=== PATIENT | female | born 1990 | race African-American/Black ===

== ENCOUNTER 2019-11-14 17:31 | Emergency (ER) | payer OTHER, SELFPAY ==
[2019-11-15 19:47] LABS: SARS-CoV-2 MS2 Positive; SARS-CoV-2 N Gene Negative; SARS-CoV-2 S Gene Negative; SARS-CoV-2 orf1ab Negative
== END 2019-11-14 19:05 | disposition home or self-care (01) ==
LOC: MADERS 17:31
DX: R19.7 Diarrhea, unspecified (principal); R51 Headache; Z20.828 Contact with and (suspected) exposure to other viral communicable diseases; F20.9 Schizophrenia, unspecified
CPT/HCPCS: 87635; 99284; U0003

== ENCOUNTER 2020-05-22 17:48 | Emergency (ER) | payer SELFPAY | END 2020-05-22 18:37 | disposition home or self-care (01) | LOC: MADERS 17:48 | DX: H93.A2 Pulsatile tinnitus, left ear (principal); Z79.899 Other long term (current) drug therapy | CPT/HCPCS: 99283 ==

== ENCOUNTER 2020-05-24 11:42 | Observation (INO) | payer SELFPAY ==
[2020-05-24] MEDS ORDERED: Acetaminophen 325 MG TAB PO PRN (12:12)
[2020-05-24] MEDS ORDERED: diphenhydrAMINE 25 MG CAP PO PRN (12:28)
[2020-05-24 12:30] VITALS: BMI 55.8
[2020-05-24] MEDS ORDERED: Acetaminophen 325 MG TAB PO SCH (14:15)
--- NOTE | 2020-05-24 19:58 | HP ---
HISTORY OF PRESENT ILLNESS: The patient is a 30-year-old female with a several month history of abnormal uterine bleeding, who was a direct admit from clinic for symptomatic anemia. The patient was found to have a hemoglobin of 5.9. She reports continuous menstrual bleeding since February of 2020. She denies any new infections or new symptoms. She does report exertional dyspnea and lightheadedness that has been ongoing as well. PAST MEDICAL HISTORY: Significant for; 1. Depression. 2. Bipolar disorder. 3. Asthma. 4. Paranoid schizophrenia. PAST SURGICAL HISTORY: None. FAMILY HISTORY: The patient reports family history of uterine fibroids in her mother. Otherwise, no known family history. SOCIAL HISTORY: Patient denies tobacco, alcohol, and drug use. REVIEW OF SYSTEMS: GENERAL: Patient denies any fevers, chills, night sweats. She does report fatigue. VISION: Patient denies vision changes. Denies eye pain. ENT: Patient denies nasal congestion, ear pain. CARDIOVASCULAR: Patient denies chest pain, palpitations. RESPIRATORY: Patient reports exertional dyspnea. ABDOMINAL: Patient reports left-sided abdominal pain. She denies any nausea, vomiting. PERFORMANCE TEST CONSULTANT: Patient reports heavy menstrual bleeding. MUSCULOSKELETAL: Patient denies muscle pain, joint pain. PSYCHIATRIC: Patient denies anxiety and depression symptoms. PHYSICAL EXAMINATION: VITALS: Temperature 98.4, pulse 107, respirations 18, oxygen 100% on room air, blood pressure 144/78. GENERAL: Patient is alert and oriented x3, in no apparent distress. HEENT: Normocephalic, atraumatic. Extraocular muscles intact. Conjunctival pallor noted. Moist mucous membranes. HEART: Regular rate and rhythm. No murmurs, rubs, or gallops. LUNGS: Clear to auscultation bilaterally. ABDOMEN: Soft. Mild tenderness to palpation in the left upper quadrants. No rebound or guarding. EXTREMITIES: Normal bulk and tone. No peripheral edema. NEUROLOGICAL: Cranial nerves 2-12 intact grossly. PSYCHIATRIC: Appropriate mood and affect. ASSESSMENT/PLAN: 1. Symptomatic anemia. We have plans to type and screen and transfuse 2 units of packed red blood cells, transfusion protocol in place. We will admit patient for observation and monitor for any signs of transfusion reaction. We will likely discharge the patient tomorrow as long as she remains stable and as long as post transfusion hemoglobin is greater than 7. 2. Menorrhagia. We will plan to initiate hormonal control of patient's blood pressure on an outpatient basis. 3. Schizophrenia. Continue patient's home medications. 4. Depression. We will continue patient's home medications. Job ID: [id number]
[2020-05-24] MEDS: Benztropine 1 MG TAB PO SCH (20:58)
[2020-05-24] MEDS: ILOPERIDONE 6 MG PO SCH (21:00)
[2020-05-24] MEDS ORDERED: Calcium Carbonate 500 MG ChewTAB PO PRN (21:08)
[2020-05-25 05:12] LABS: Platelet Count 310 thou/uL (130-400)
[2020-05-25] MEDS: ILOPERIDONE 6 MG PO SCH (08:15)
[2020-05-25] MEDS: Benztropine 1 MG TAB PO SCH (08:15)
[2020-05-25] MEDS ORDERED: Atomoxetine Hcl [Strattera] 60 MG Capsule PO SCH (09:00)
[2020-05-25] MEDS ORDERED: DULoxetine 30 MG CAP PO SCH (09:00)
[2020-05-25 13:38] VITALS: BP 130/58; TEMP 97
[2020-05-26] MEDS ORDERED: medroxyPROGESTERone Acetate 2.5 MG TAB PO SCH (09:00)
== END 2020-05-25 11:45 | disposition home or self-care (01) ==
LOC: MADMS 11:42
PROVIDERS: ADMIT Family Medicine; ATTEND Family Medicine
DX: D64.9 Anemia, unspecified (principal); N92.0 Excessive and frequent menstruation with regular cycle; F31.9 Bipolar disorder, unspecified; J45.909 Unspecified asthma, uncomplicated; F20.0 Paranoid schizophrenia; Z79.899 Other long term (current) drug therapy
CPT/HCPCS: 36415; 36430; 85014; 85018; 85049; 86850; 86900; 86901; G0378; P9016

== ENCOUNTER 2020-07-28 13:29 | Emergency (ER) | payer SELFPAY ==
[~2020-07-28 13:29] MED LIST: Sodium Chloride 0.9% 1,000 ML BAG ONE; Sodium Chloride 0.9% 100 ML BAG ONE
[2020-07-28] MEDS ORDERED: Iopamidol 370 76% 125 ML VIAL FS ONE (13:52)
[2020-07-28 15:03] LABS: ALT (SGPT) 36 U/L (8-55); AST (SGOT) 44 U/L (5-34); Alkaline Phosphatase 74 U/L (40-110); Anion Gap 20 mmol/L (10-20); BUN (Urea Nitrogen) 13 mg/dL (7.0-18.7); Bilirubin, Total 0.7 mg/dL (0.2-1.2); CK (CPK) 1222 U/L (29-168); Calc. Creatinine Clearance 0 mL/min (70-130); Calcium 8.6 mg/dL (7.8-10.44); Carbon Dioxide 23 mmol/L (22-29); Chloride 104 mmol/L (98-107); Globulin 3.6 g/dL (2.4-3.5); Glucose 183 mg/dL (70-105); Potassium 4.2 mmol/L (3.5-5.1); Protein, Total 7.6 g/dL (6.0-8.3); Sodium 143 mmol/L (136-145)
[2020-07-28 15:06] LABS: #Basophils 0.2 thou/uL (0.0-0.2); #Lymphocytes 1.5 thou/uL (1.20-3.40); #Monocytes 1.2 thou/uL (0.11-0.59); %Basophils 1.6 % (0.0-1.0); %Eosinophils 0.2 % (0.0-10.0); %Lymphocytes 12.8 % (21.0-51.0); %Monocytes 9.7 % (0.0-10.0); %Neutrophils 75.6 % (42.0-75.0); Anisocytosis MODERATE=16-30 cells (100X) (0-5/hpf); Hemoglobin 9.9 g/dL (12.0-16.0); Hypochromia MODERATE=16-30 cells (100X) (0-5/hpf); MDiff Complete? YES; Mean Corpuscular HGB CONC 27.7 g/dL (32.0-36.0); Mean Corpuscular Hemoglobin 20.1 pg (27.0-31.0); Mean Corpuscular Volume 72.7 fL (78.0-98.0); Mean Platelet Volume 7.4 fL (7.4-10.4); Microcytosis SLIGHT = 6-15 cells (100X) (0-5/hpf); Platelet Count 475 thou/uL (130-400); Platelet Morphology Comment Appears Increased; RBC Distribution Width 20.5 % (11.5-14.5); Red Blood Cell (RBC) Count 4.92 mill/uL (4.20-5.40); White Blood Cell (WBC) Count 11.9 thou/uL (4.8-10.8)
[2020-07-28] MEDS ORDERED: Sodium Chloride 0.9% 1,000 ML ONE (15:10)
[2020-07-28] MEDS ORDERED: Ibuprofen 400 MG TAB ONE (15:10)
[2020-07-28] MEDS ORDERED: Ondansetron PF 4 MG/2 ML Vial ONE (15:10)
[2020-07-28] MEDS ORDERED: cefTRIAXone\\ROCEPHIN 2 GM VIAL ONE (15:57)
[2020-07-28] MEDS ORDERED: Sodium Chloride 0.9% 100 ML ONE (15:57)
[2020-07-28] MEDS ORDERED: Sodium Chloride 0.9% 250 ML 250 ML ONE (15:57)
[2020-07-28] MEDS ORDERED: Azithromycin 500 MG VIAL ONE (15:57)
[2020-07-28 16:17] LABS: SARS-CoV-2 NAA Rapid Test DETECTED (NotDetected)
[2020-07-28] MEDS ORDERED: Dexamethasone 10 MG/ML VIAL ONE (17:14)
[2020-07-28] MEDS ORDERED: Enoxaparin Sodium 30 MG/0.3 ML SYRINGE ONE (17:14)
[2020-07-28] MEDS ORDERED: Ondansetron ODT 4 MG TAB SL PRN (19:45)
[2020-07-28] MEDS ORDERED: Sodium Chloride 0.9% 1,000 ML IV SCH (19:45)
[2020-07-28] MEDS ORDERED: Ondansetron PF 4 MG/2 ML Vial IVP PRN (19:45)
[2020-07-28] MEDS ORDERED: Acetaminophen 325 MG TAB PO PRN (19:45)
== END 2020-07-28 18:25 | disposition short-term general hospital (02) ==
LOC: MADERS 13:29
DX: U07.1 COVID-19 (principal); J12.82 Pneumonia due to coronavirus disease 2019; J44.1 Chronic obstructive pulmonary disease with (acute) exacerbation; R06.03 Acute respiratory distress; R09.02 Hypoxemia; R79.1 Abnormal coagulation profile; E87.2 Acidosis; Z79.899 Other long term (current) drug therapy
CPT/HCPCS: 0240U; 71046; 71275; 80053; 82550; 83605; 84484; 85025; 85379; 87040; 87149; 94760; 96365; 96372; 96375; J0456; J0696; J1100; J1650; J2405; J3490; J7050; Q9967

== ENCOUNTER 2020-08-06 10:43 | Emergency (ER) | payer SELFPAY ==
[2020-08-06] MEDS ORDERED: Acetaminophen 500 MG TAB ONE (11:57)
== END 2020-08-06 13:22 ==
LOC: MADERS 10:43
DX: S82.301A Unspecified fracture of lower end of right tibia, initial encounter for closed fracture (principal); Z79.899 Other long term (current) drug therapy; X50.1XXA Overexertion from prolonged static or awkward postures, initial encounter

== ENCOUNTER 2021-03-02 13:56 | Emergency (ER) | payer OTHER ==
[2021-03-02 15:17] LABS: #Basophils 0.1 thou/uL (0.0-0.2); #Eosinphils 0.1 thou/uL (0.0-0.7); #Lymphocytes 2.7 thou/uL (1.20-3.40); #Monocytes 0.5 thou/uL (0.11-0.59); #Neutrophils 6.2 thou/uL (1.40-6.50); %Eosinophils 0.6 % (0.0-10.0); %Lymphocytes 27.8 % (21.0-51.0); %Monocytes 5.4 % (0.0-10.0); %Neutrophils 65.1 % (42.0-75.0); Hemoglobin 9.6 g/dL (12.0-16.0); Mean Corpuscular HGB CONC 27.8 g/dL (32.0-36.0); Mean Corpuscular Hemoglobin 18.8 pg (27.0-31.0); Mean Corpuscular Volume 67.6 fL (78.0-98.0); Mean Platelet Volume 5.9 fL (7.4-10.4); Platelet Count 545 thou/uL (130-400); RBC Distribution Width 16.9 % (11.5-14.5); White Blood Cell (WBC) Count 9.5 thou/uL (4.8-10.8)
[2021-03-02 15:23] LABS: INR-International Normal Ratio 1.1; PTT 34.4 sec (22.9-36.1); Prothrombin Time 14.2 sec (12.0-14.7)
[2021-03-02 15:26] LABS: ALT (SGPT) 29 U/L (8-55); AST (SGOT) 20 U/L (5-34); Albumin 4.1 g/dL (3.5-5.0); Alkaline Phosphatase 89 U/L (40-110); Anion Gap 12 mmol/L (10-20); BUN (Urea Nitrogen) 8 mg/dL (7.0-18.7); Bilirubin, Total 0.4 mg/dL (0.2-1.2); CK (CPK) 169 U/L (29-168); Calc. Creatinine Clearance 0 mL/min (70-130); Calcium 8.9 mg/dL (7.8-10.44); Carbon Dioxide 27 mmol/L (22-29); Chloride 105 mmol/L (98-107); D-Dimer Test 0.28 *mcg/mL (0.27-0.43); Glucose 105 mg/dL (70-105); Potassium 4.4 mmol/L (3.5-5.1); Protein, Total 7.1 g/dL (6.0-8.3); Sodium 140 mmol/L (136-145)
[2021-03-02 15:37] LABS: Hypochromia SLIGHT = 6-15 cells (100X) (0-5/hpf); Microcytosis SLIGHT = 6-15 cells (100X) (0-5/hpf); Polychromasia MODERATE = 3-4 cells (100X) (0-2/hpf)
== END 2021-03-02 16:05 | disposition home or self-care (01) ==
LOC: MADERS 13:56
DX: D50.9 Iron deficiency anemia, unspecified (principal); R07.89 Other chest pain; D75.839 Thrombocytosis, unspecified; Z86.16 Personal history of COVID-19
CPT/HCPCS: 36415; 71045; 80053; 82550; 82553; 83880; 84484; 85025; 85379; 85610; 85730; 93005

== ENCOUNTER 2021-04-25 00:22 | Emergency (ER) | payer OTHER, SELFPAY ==
[2021-04-25] MEDS ORDERED: Sodium Chloride 0.9% 100 ML BAG FS ONE (00:23)
[2021-04-25] MEDS ORDERED: Iopamidol 370 76% 125 ML VIAL FS ONE (00:23)
[2021-04-25 01:38] LABS: Prothrombin Time 13.5 sec (12.0-14.7)
[2021-04-25 01:39] LABS: PTT 32.1 sec (22.9-36.1)
[2021-04-25 01:45] LABS: #Lymphocytes 2.6 thou/uL (1.20-3.40); #Monocytes 0.7 thou/uL (0.11-0.59); #Neutrophils 8.1 thou/uL (1.40-6.50); %Basophils 0.3 % (0.0-1.0); %Eosinophils 0.2 % (0.0-10.0); %Monocytes 6.4 % (0.0-10.0); %Neutrophils 70.2 % (42.0-75.0); Anisocytosis SLIGHT = 6-15 cells (100X) (0-5/hpf); Hypochromia SLIGHT = 6-15 cells (100X) (0-5/hpf); MDiff Complete? YES; Mean Corpuscular HGB CONC 28.4 g/dL (32.0-36.0); Mean Corpuscular Hemoglobin 19.5 pg (27.0-31.0); Mean Corpuscular Volume 68.6 fL (78.0-98.0); Mean Platelet Volume 5.8 fL (7.4-10.4); Microcytosis SLIGHT = 6-15 cells (100X) (0-5/hpf); Ovalocytes SLIGHT = 2-5 cells (100X) (0-1/hpf); Platelet Count 518 thou/uL (130-400); Platelet Morphology Comment Appears Adequate; RBC Distribution Width 17.2 % (11.5-14.5); Red Blood Cell (RBC) Count 5.13 mill/uL (4.20-5.40); Stomatocytes SLIGHT = 2-5 cells (100X) (0-1/hpf); White Blood Cell (WBC) Count 11.5 thou/uL (4.8-10.8)
[2021-04-25 01:47] LABS: ALT (SGPT) 23 U/L (8-55); AST (SGOT) 16 U/L (5-34); Alkaline Phosphatase 105 U/L (40-110); Anion Gap 10 mmol/L (10-20); BUN (Urea Nitrogen) 11 mg/dL (7.0-18.7); Bilirubin, Total 0.3 mg/dL (0.2-1.2); Calc. Creatinine Clearance 0 mL/min (70-130); Calcium 9.3 mg/dL (7.8-10.44); Carbon Dioxide 28 mmol/L (22-29); Chloride 108 mmol/L (98-107); Globulin 3.1 g/dL (2.4-3.5); Glucose 99 mg/dL (70-105); Potassium 4.1 mmol/L (3.5-5.1); Protein, Total 7.1 g/dL (6.0-8.3); Sodium 142 mmol/L (136-145)
[2021-04-25 02:05] LABS: SARS-CoV-2 NAA Rapid Test Not Detected (NotDetected)
[2021-04-25 02:06] LABS: BHCG - Serum Negative (NEGATIVE); Pregs Control Background? CLEAR/WHITE (CLR/WHITE); Pregs Control Bar Appear? YES (CONTROL BAR)
== END 2021-04-25 03:24 | disposition home or self-care (01) ==
LOC: MADERS 00:22
DX: B34.9 Viral infection, unspecified (principal); Z20.822 Contact with and (suspected) exposure to COVID-19; Z86.16 Personal history of COVID-19
CPT/HCPCS: 0240U; 36415; 71275; 80053; 83880; 84484; 84703; 85025; 85610; 85730; 93005; J3490; Q9967

== ENCOUNTER 2021-07-19 12:24 | Emergency (ER) | payer OTHER, SELFPAY ==
[2021-07-19 13:16] LABS: Bilirubin Negative (Negative); Blood, Urine Trace (Negative); Clarity Cloudy (Clear); Glucose, Urine (Dipstick) Negative (Negative); Ketone, Urine Negative (Negative); Leukocyte Small (Negative); Nitrite Negative (Negative); Protein, Urine (Dipstick) Negative (Neg-Trace); Urobilinogen 0.2 mg/dL (Less than 2); pH, Urine 7.5 (5.0-9.0)
[2021-07-19 13:19] LABS: Bacteria/HPF 1+ HPF (None Seen); RBC/HPF 0-3 HPF (0-3)
[2021-07-20 15:16] LABS: SARS-CoV-2 PCR by NAA Not Detected (NotDetected)
== END 2021-07-19 13:40 | disposition home or self-care (01) ==
LOC: MADERS 12:24
DX: J06.9 Acute upper respiratory infection, unspecified (principal); Z20.822 Contact with and (suspected) exposure to COVID-19
CPT/HCPCS: 81003; 81015; 99283; U0003; U0005

== ENCOUNTER 2021-11-09 14:38 | Emergency (ER) | payer OTHER | END 2021-11-09 16:00 | disposition home or self-care (01) | LOC: MADERS 14:38 | DX: U07.1 COVID-19 (principal); J45.901 Unspecified asthma with (acute) exacerbation; Z86.16 Personal history of COVID-19; Z79.899 Other long term (current) drug therapy | CPT/HCPCS: 71045; U0003; U0005 ==

== ENCOUNTER 2021-12-12 13:02 | Outpatient (CLI) | payer OTHER | END 2021-12-12 13:03 | disposition home or self-care (01) | LOC: MADLAB 13:02 → MADRAD 13:03 | PROVIDERS: ATTEND Family Medicine | DX: U07.1 COVID-19 (principal); I51.7 Cardiomegaly; R93.89 Abnormal findings on diagnostic imaging of other specified body structures | CPT/HCPCS: 71046 ==

== ENCOUNTER 2022-11-29 22:16 | Emergency (ER) | payer OTHER, SELFPAY ==
[2022-11-29 23:10] LABS: Hematocrit 36.5 % (36.0-47.0); Hemoglobin 11.2 g/dL (12.0-16.0)
[2022-11-29 23:20] LABS: BHCG - Serum Negative (NEGATIVE); Pregs Control Background? CLEAR/WHITE (CLR/WHITE); Pregs Control Bar Appear? YES (CONTROL BAR)
[2022-11-30 00:16] LABS: Bilirubin Negative (Negative); Blood, Urine Large (Negative); Clarity Slightly Cloudy (Clear); Glucose, Urine (Dipstick) Negative (Negative); Ketone, Urine Negative (Negative); Leukocyte Negative (Negative); Nitrite Negative (Negative); Protein, Urine (Dipstick) 30 mg/dL (Neg-Trace); RBC/HPF Greater than 50 HPF (0-3); Urobilinogen 0.2 mg/dL (Less than 2); pH, Urine 8.5 (5.0-9.0)
[2022-11-30 00:17] LABS: Bacteria/HPF Rare-Few HPF (None Seen); CAUTI Indications for Culture Acute Hematuria; Squamous Epithelial 0-3 HPF (0-3); WBC/HPF 0-3 HPF (0-3)
[2022-11-30 00:18] LABS: Urine Culture Reflex No No
== END 2022-11-30 00:25 | disposition home or self-care (01) ==
LOC: MADERS 22:16
DX: N93.9 Abnormal uterine and vaginal bleeding, unspecified (principal)
CPT/HCPCS: 84703; 85014; 85018; 99284

== ENCOUNTER 2023-08-30 12:56 | Outpatient (CLI) | payer OTHER | END 2023-08-30 12:57 | disposition home or self-care (01) | LOC: MADRAD 12:56 | PROVIDERS: ATTEND Nurse Practitioner Family | DX: M25.562 Pain in left knee (principal) ==

== ENCOUNTER 2024-06-15 13:38 | Emergency (ER) | payer OTHER ==
[~2024-06-15 13:38] MED LIST changes: +Iopamidol 370 76% 100 ML VIAL ONE; -Sodium Chloride 0.9% 1,000 ML BAG ONE; -Sodium Chloride 0.9% 100 ML BAG ONE
[2024-06-15] MEDS ORDERED: Sodium Chloride 0.9% 1,000 ML ONE (13:45)
[2024-06-15] MEDS ORDERED: Ondansetron PF 4 MG/2 ML Vial ONE (13:45)
[2024-06-15 14:11] LABS: Base Excess-Venous -0.1 mmol/L (-2.0 to 3.0); Bicarbonate (HCO3v) 24.5 mmol/L (22.0-28.0); CO2 Tension (PvCO2) 39.2 mmHg (42.0-51.0); Calcium, Ionized 1.16 mmol/L (1.15-1.33); Chloride 107 mmol/L (98-107); Hemoglobin - Calc 15.3 g/dL (12.0-16.0); Potassium 4.3 mmol/L (3.5-5.1); Sodium 141 mmol/L (138-145); T. Carbon Dioxide 25.7 mmol/L (22.0-28.0); vO2 Saturation-calc 99.6 % (60.0-85.0)
[2024-06-15 14:14] LABS: ALT (SGPT) 136 U/L (Less than 34); AST (SGOT) 121 U/L (11-34); Albumin 4.2 g/dL (3.1-4.5); Alkaline Phosphatase 104 U/L (40-110); Anion Gap 20 mmol/L (10-20); BUN (Urea Nitrogen) 9 mg/dL (7.0-18.7); Bilirubin, Total 0.6 mg/dL (0.3-1.2); Calc. Creatinine Clearance 0 mL/min (70-130); Calcium 9.5 mg/dL (7.8-10.44); Carbon Dioxide 17 mmol/L (22-29); Chloride 105 mmol/L (98-107); Estimated GFR 92; Globulin 4.1 g/dL (2.4-3.5); Glucose 115 mg/dL (70-105); Potassium 4.2 mmol/L (3.5-5.1); Protein, Total 8.3 g/dL (6.0-8.3); Sodium 138 mmol/L (136-145)
[2024-06-15 14:19] LABS: Hematocrit 40.8 % (36.0-47.0); Hemoglobin 12.4 g/dL (12.0-16.0); Manual Diff?? YES; Mean Corpuscular HGB CONC 30.2 g/dL (32.0-36.0); Mean Corpuscular Hemoglobin 24.5 pg (27.0-31.0); Mean Corpuscular Volume 80.9 fl (78.0-98.0); Mean Platelet Volume 7.1 fL (7.4-10.4); Platelet Count 393 10x3/uL (130-400); RBC Distribution Width 15.3 % (11.5-14.5); Red Blood Cell (RBC) Count 5.05 mill/uL (4.20-5.40); White Blood Cell (WBC) Count 10.8 10x3/uL (4.8-10.8)
[2024-06-15 14:25] LABS: Band 1 % (5-11); Lymphocytes 4 % (21-51); MDiff Complete? YES; Monocytes 3 % (0-10); Neutrophil 90 % (42-75); Polychromasia SLIGHT = 2-3 cells (100X) (0-2/hpf); Reactive Lymphocytes 2 % (0-10)
[2024-06-15 14:26] LABS: Anisocytosis SLIGHT = 6-15 cells (100X) (0-5/hpf)
[2024-06-15 14:55] LABS: BHCG - Serum Negative (NEGATIVE); Pregs Control Background? CLEAR/WHITE (CLR/WHITE); Pregs Control Bar Appear? YES (CONTROL BAR)
[2024-06-15 15:01] LABS: Bilirubin Small (Negative); Blood, Urine Negative (Negative); Clarity Cloudy (Clear); Glucose, Urine (Dipstick) Negative (Negative); Ketone, Urine 40 mg/dL (Negative); Leukocyte Negative (Negative); Nitrite Negative (Negative); Protein, Urine (Dipstick) 30 mg/dL (Neg-Trace); Specific Gravity, Urine 1.025 (1.005-1.030); Urobilinogen 0.2 mg/dL (Less than 2)
[2024-06-15 15:03] LABS: CAUTI Indications for Culture Pelvic or flank pain; RBC/HPF None Seen HPF (0-3)
[2024-06-15 15:04] LABS: Bacteria/HPF Rare-Few HPF (None Seen); Mucous/LPF 3+ LPF (<2+); Urine Culture Reflex No No; WBC/HPF 0-3 HPF (0-3)
[2024-06-15 15:10] LABS: Amphetamine Not Detected (NotDetected); Barbiturates Screen Not Detected (NotDetected); Benzodiazepine Screen Not Detected (NotDetected); Cocaine Metabolite Screen Not Detected (NotDetected); Methadone Not Detected (NotDetected); Methamphetamine Not Detected (NotDetected); Opiate Screen Not Detected (NotDetected); Oxycodone Screen Not Detected (NotDetected); Phencyclidine (PCP) Not Detected (NotDetected); THC/Cannabinoid Screen Not Detected (NotDetected); Tricyclic Screen Not Detected (NotDetected)
== END 2024-06-15 16:28 | disposition home or self-care (01) ==
LOC: MADERS 13:38
DX: K52.9 Noninfective gastroenteritis and colitis, unspecified (principal); E66.9 Obesity, unspecified; J45.909 Unspecified asthma, uncomplicated
CPT/HCPCS: 36415; 74177; 80053; 80306; 81001; 82330; 82435; 82803; 84132; 84295; 84703; 85014; 85025; 96361; 96374; J2405; J7030; Q9967

== ENCOUNTER 2024-12-22 10:24 | Outpatient (CLI) | payer OTHER | END 2024-12-22 10:25 | disposition home or self-care (01) | LOC: MADRAD 10:24 | PROVIDERS: ATTEND Family Medicine | DX: M25.551 Pain in right hip (principal) ==

== ENCOUNTER 2025-01-21 16:35 | Emergency (ER) | payer OTHER ==
[2025-01-21 18:16] LABS: Hematocrit 34.2 % (36.0-47.0); Hemoglobin 10.3 g/dL (12.0-16.0); Mean Corpuscular Hemoglobin 22.4 pg (27.0-31.0); Mean Corpuscular Volume 74.2 fl (78.0-98.0); Platelet Count 515 10x3/uL (130-400); Red Blood Cell (RBC) Count 4.61 mill/uL (4.20-5.40); White Blood Cell (WBC) Count 16.1 10x3/uL (4.8-10.8)
[2025-01-21 18:28] LABS: Anion Gap 19 mmol/L (10-20); BUN (Urea Nitrogen) 8 mg/dL (7.0-18.7); Calc. Creatinine Clearance 0 mL/min (70-130); Calcium 8.8 mg/dL (7.8-10.44); Carbon Dioxide 22 mmol/L (22-29); Chloride 106 mmol/L (98-107); Glucose 110 mg/dL (70-105); Potassium 4.5 mmol/L (3.5-5.1); Sodium 142 mmol/L (136-145)
[2025-01-21] MEDS ORDERED: Amoxicillin/Potassium Clav 875 MG TAB ONE (18:38)
[2025-01-21 19:00] LABS: MDiff Complete? YES; Microcytosis SLIGHT = 6-15 cells (100X) (0-5/hpf); Platelet Adequacy Comment Appears Increased; Polychromasia SLIGHT = 2-3 cells (100X) (0-2/hpf)
== END 2025-01-21 19:04 | disposition home or self-care (01) ==
LOC: MADERS 16:35
DX: J18.9 Pneumonia, unspecified organism (principal); E03.9 Hypothyroidism, unspecified; F90.9 Attention-deficit hyperactivity disorder, unspecified type; Z79.890 Hormone replacement therapy; Z79.51 Long term (current) use of inhaled steroids
CPT/HCPCS: 71046; 80048; 83605; 83880; 85025; 85379